=== PATIENT | male | born 1975 | race Caucasian/White ===

== ENCOUNTER 2023-07-14 13:57 | Inpatient (IN) | payer OTHER ==
[2023-07-14 16:31] VITALS: BMI 25.0
[2023-07-14] MEDS ORDERED: LOPERAMIDE HCL 2 MG CAPSULE PO PRN (18:19)
[2023-07-14] MEDS ORDERED: IBUPROFEN 600 MG TABLET (FP) PO PRN (18:19)
[2023-07-14] MEDS ORDERED: BENZONATATE 200 MG CAPSULE PO PRN (18:19)
[2023-07-14] MEDS ORDERED: POLYETHYLENE GLYCOL (HEALTHYLAX) 3350 17 GM PACKET PO PRN (18:19)
[2023-07-14] MEDS ORDERED: MAG HYDROX/AL HYDROX/SIMETH 30 ML UNIT-DOSE CUP PO PRN (18:19)
[2023-07-14] MEDS ORDERED: METHOCARBAMOL 500 MG TABLET PO PRN (18:19)
[2023-07-14] MEDS ORDERED: BENZOCAINE/MENTHOL (CHLORASEPTIC ) LOZENGE MM PRN (18:19)
[2023-07-14] MEDS ORDERED: guaiFENesin 600 MG TABLET.ER (FP) PO PRN (18:19)
[2023-07-14] MEDS ORDERED: ACETAMINOPHEN 325 MG TABLET (FP) PO PRN (18:19)
[2023-07-14] MEDS ORDERED: IBUPROFEN 400 MG TABLET (FP) PO PRN (18:19)
[2023-07-14] MEDS ORDERED: BISMUTH SUBSALICYLATE 524 MG/30 ML PO PRN (18:19)
[2023-07-14] MEDS: chlordiazePOXIDE HCL 25 MG CAPSULE PO PRN (20:09)
[2023-07-14] MEDS: ONDANSETRON *ODT* 4 MG TABLET SL PRN (20:10)
[2023-07-14] MEDS: DICYCLOMINE HCL 10 MG CAPSULE PO PRN (20:15)
[2023-07-14] MEDS: ALBUTEROL SO4 HFA INHALER IH PRN (22:56)
[2023-07-14] MEDS: MELATONIN 5 MG TABLETS PO SCH (22:57)
[2023-07-14] MEDS: chlordiazePOXIDE HCL 25 MG CAPSULE PO SCH (22:57)
[2023-07-14] MEDS: THIAMINE 100 MG TABLET PO SCH (22:57)
[2023-07-14] MEDS: MOMETASONE FUROATE 220 MCG/IH INHALER IH SCH (23:00)
[2023-07-15] MEDS: PRENATAL VITAMINS W/ FOLIC ACID TABLET (FP) PO SCH (10:10)
[2023-07-15] MEDS: hydrOXYzine PAMOATE 25 MG CAPSULE (FP) PO PRN (10:12)
[2023-07-15 10:52] LABS: POTASSIUM 3.9 mmol/L (3.5-5.1)
[2023-07-15 10:56] LABS: HEMATOCRIT 37.9 % (35.4-49); HEMOGLOBIN 12.3 GM/dL (11.7-16.9); MCH 26.5 pg (25.7-33.7); MCHC 32.6 g/dl (32.0-35.9); MEAN CELL VOLUME 81.5 fl (80-96); MEAN PLT VOLUME 8.7 fl (7.5-11.1); PLATELET COUNT 138 10^3/uL (134-434); RBC 4.66 M/mm3 (4.00-5.60); RDW 17.5 % (11.9-15.9); WHITE BLOOD COUNT 3.8 K/mm3 (4.0-10.0)
[2023-07-15 11:02] LABS: CALCIUM 8.5 mg/dL (8.5-10.1)
[2023-07-15 11:03] LABS: BLOOD UREA NITROGEN 11.1 mg/dL (7-18)
[2023-07-15 11:05] LABS: CREATININE 0.7 mg/dL (0.55-1.3)
[2023-07-15 11:07] LABS: BILIRUBIN,TOTAL 0.5 mg/dL (0.2-1); TOT PROT 6.6 g/dl (6.4-8.2)
[2023-07-15] MEDS: PARoxetine HCL 20 MG TABLET PO SCH (11:36)
[2023-07-16] MEDS: chlordiazePOXIDE HCL 10 MG CAPSULE PO SCH ×2 (05:27→10:14)
[2023-07-16] MEDS: chlordiazePOXIDE HCL 25 MG CAPSULE PO SCH (06:00)
[2023-07-16] MEDS: MAGNESIUM HYDROX 2400MG/30ML ORAL SUSPENSION 30 ML CUP PO PRN (10:16)
[2023-07-17] MEDS ORDERED: chlordiazePOXIDE HCL 10 MG CAPSULE PO PRN
[2023-07-17] MEDS: chlordiazePOXIDE HCL 10 MG CAPSULE PO SCH (05:16)
[2023-07-18] MEDS: chlordiazePOXIDE HCL 10 MG CAPSULE PO ONE (05:13)
[2023-07-18 08:45] VITALS: BP 100/67; PULSE 60; RESP 16; TEMP 98.6
== END 2023-07-18 09:50 | disposition home or self-care (01) | DRG 775 ==
LOC: YASAS 13:57 → Y3N 19:10
PROVIDERS: ADMIT Allergy & Immunology; ATTEND Surgery
PROC: HZ2ZZZZ Detoxification Services for Substance Abuse Treatment (ICD-10-PCS; principal; 2023-07-14)
DX: F10.230 Alcohol dependence with withdrawal, uncomplicated (principal); F32.A Depression, unspecified; J45.909 Unspecified asthma, uncomplicated; Z86.59 Personal history of other mental and behavioral disorders
CPT/HCPCS: 36415; 80053; 80305; 85027; 86780; 93005; 93010; Q0162